=== PATIENT | female | born 1960 | race Caucasian/White ===

== ENCOUNTER 2023-11-18 18:09 | Emergency (ER) | payer MEDICARE ==
[~2023-11-18] VITALS: Ht 167.6 cm; Wt 59.0 kg
[2023-11-18 18:10] VITALS: PULSE 90; RESP 14; TEMP 97.4
[2023-11-18 20:01] LABS: BASOPHILS # (AUTO) 0.1 (0.0-0.1); BASOPHILS % 1.3 % (0.0-1.0); EOSINOPHILS # (AUTO) 0.3 (0.0-0.4); EOSINOPHILS % 3.9 % (0.0-6.0); HEMOGLOBIN 12.5 g/dL (12.0-16.0); LYMPHOCYTES # (AUTO) 2.5 (1.0-3.2); LYMPHOCYTES % 33.1 % (18.0-39.1); MEAN CORPUSCULAR HEMOGLOBIN 29.7 pg (28-32); MEAN CORPUSCULAR HGB CONC 32.9 g/dL (31-35); MEAN CORPUSCULAR VOLUME 90.3 fL (81-99); MONOCYTES # (AUTO) 0.5 (0.2-0.8); MONOCYTES % 6.6 % (4.4-11.3); NEUTROPHILS # (AUTO) 4.2 (2.1-6.9); NEUTROPHILS % 54.7 % (38.7-80.0); PLATELET COUNT 262 x10e3/uL (140-360); RED BLOOD COUNT 4.21 x10e6/uL (3.6-5.1); WHITE BLOOD COUNT 7.68 x10e3/uL (4.8-10.8)
[2023-11-18] MEDS: SODIUM CHLORIDE 0.9% 1000ML 1,000 ML IV STA ×2 (20:01→22:37)
[2023-11-18] MEDS: ACETAMINOPHEN 325 MG TAB PO STA (20:22)
[2023-11-18] MEDS ORDERED: ACETAMINOPHEN 325 MG TAB ONE (20:24)
[2023-11-18 20:25] LABS: ALANINE AMINOTRANSFERASE 11 IU/L (0-55); ALBUMIN 4.1 g/dL (3.5-5.0); ALBUMIN/GLOBULIN RATIO 1.1 (0.8-2.0); ALKALINE PHOSPHATASE 74 IU/L (40-150); BILIRUBIN,TOTAL 0.3 mg/dL (0.2-1.2); BLOOD UREA NITROGEN 13 mg/dL (7-26); BUN/CREATININE RATIO 17 (6-25); CALCIUM 9.3 mg/dL (8.4-10.2); CARBON DIOXIDE 19 mmol/L (22-29); CHLORIDE 92 mmol/L (98-107); CREATINE KINASE 87 IU/L (29-168); CREATININE, SERUM 0.76 mg/dL (0.57-1.11); EST GLOMERULAR FILTRATION RATE 89 ML/MIN (>=60); GLUCOSE 89 mg/dL (74-118); SODIUM 125 mmol/L (136-145); TOTAL PROTEIN 7.8 g/dL (6.5-8.1)
[2023-11-18 20:34] LABS: TROPONIN I < 0.001 ng/mL (0-0.300)
[2023-11-18 21:17] LABS: CLARITY,URINE CLEAR (CLEAR); COLOR,URINE YELLOW (YELLOW); LEUKOCYTE ESTERASE ,URINE TRACE (NEGATIVE); NITRITE,URINE NEGATIVE (NEGATIVE); PH,URINE 5.5 (5 - 7)
[2023-11-18 21:18] LABS: BILIRUBIN,URINE NEGATIVE (NEGATIVE); GLUCOSE, URINE NEGATIVE (NEGATIVE); KETONES,URINE NEGATIVE (NEGATIVE); PROTEIN,URINE DIPSTICK NEGATIVE (NEGATIVE); URINE UROBILINOGEN 0.2 mg/dL (0.2 - 1)
[2023-11-18 21:20] LABS: BACTERIA,URINE FEW /HPF; EPITHELIAL CELLS,URINE RARE /LPF; RBC,URINE 0-5 /HPF (0-5); WBC,URINE (MAN) 0-5 /HPF (0-5)
[2023-11-18 21:21] LABS: AMPHETAMINES SCREEN,URINE NEGATIVE (NEGATIVE); BENZODIAZEPINES SCREEN,URINE NEGATIVE (NEGATIVE); CANNABINOIDS SCREEN,URINE NEGATIVE (NEGATIVE); METHADONE SCREEN, URINE NEGATIVE (NEGATIVE); OPIATES SCREEN,URINE NEGATIVE (NEGATIVE); PHENCYCLIDINE SCREEN,URINE NEGATIVE (NEGATIVE)
[2023-11-18 22:38] VITALS: BP 149/90; PULSE 87; RESP 16; TEMP 97.7; O2SAT 97
== END 2023-11-18 22:53 | disposition home or self-care (01) ==
LOC: ER 18:14
DX: R10.13 Epigastric pain (principal); G89.29 Other chronic pain; E87.1 Hypo-osmolality and hyponatremia; F10.129 Alcohol abuse with intoxication, unspecified; J44.9 Chronic obstructive pulmonary disease, unspecified; Z11.52 Encounter for screening for COVID-19; R94.31 Abnormal electrocardiogram [ECG] [EKG]; Z85.3 Personal history of malignant neoplasm of breast
CPT/HCPCS: 36415; 74177; 80053; 80307; 80320; 81001; 82550; 83690; 84484; 85025; 93005; 99284; J7030; U0002